=== PATIENT | female | born 1985 | race African-American/Black ===

== ENCOUNTER 2017-01-08 08:30 | Emergency (ER) | payer MEDICAID ==
[~2017-01-08] VITALS: Ht 154.9 cm; Wt 81.6 kg
[2017-01-08 08:48] VITALS: BP 146/92
== END 2017-01-08 10:23 | disposition left against medical advice (07) ==
LOC: ER 08:34
DX: R30.0 Dysuria (principal); Z53.21 Procedure and treatment not carried out due to patient leaving prior to being seen by health care provider